=== PATIENT | male | born 1960 ===

== ENCOUNTER 2021-04-30 21:14 | Inpatient (IN) | payer MEDICAID ==
[~2021-04-30] VITALS: Ht 170.2 cm; Wt 62.9 kg
[2021-04-30 21:35] VITALS: BP 171/95
[2021-04-30] MEDS ORDERED: DOCUSATE 100 MG CAPSULE PO PRN (22:00)
[2021-04-30] MEDS ORDERED: POLYETHYLENE GLYCOL 17 GM PACKET PO PRN (22:00)
[2021-04-30] MEDS ORDERED: BISACODYL 10 MG SUPP PR PRN (22:00)
[2021-04-30] MEDS ORDERED: ACETAMINOPHEN 325 MG TABLET PO PRN (22:00)
[2021-04-30] MEDS ORDERED: PLEASE ENTER HEIGHT AND WEIGHT MC SCH (22:00)
[2021-05-01 07:18] LABS: CHOL/HDL RATIO 3.7; FREE T4 (FREE THYROXINE) 1.22 ng/dL (0.76-1.46); LDL/HDL RATIO 2.3 (0.5-3.0)
[2021-05-01 08:09] VITALS: BP 127/81
[2021-05-01 19:50] VITALS: BP 146/87
[2021-05-01] MEDS: OLANZAPINE 2.5 MG TABLET PO SCH (21:00)
[2021-05-02 07:24] VITALS: BP 131/78
[2021-05-02 19:27] VITALS: BP 137/79
[2021-05-02] MEDS: OLANZAPINE 2.5 MG TABLET PO SCH (20:48)
[2021-05-03 07:02] VITALS: BP 130/76
[2021-05-03 19:17] VITALS: BP 127/76
[2021-05-03] MEDS: OLANZAPINE 2.5 MG TABLET PO SCH (20:38)
[2021-05-04 07:20] VITALS: BP 126/77
[2021-05-04 20:04] VITALS: BP 125/70
[2021-05-04] MEDS: OLANZAPINE 2.5 MG TABLET PO SCH (20:45)
[2021-05-05 07:26] VITALS: BP 143/87
== END 2021-05-05 15:40 | disposition home or self-care (01) | DRG 885 ==
LOC: 3E 21:15
PROVIDERS: ADMIT Psychiatry & Neurology Psychosomatic Medicine; ATTEND Psychiatry & Neurology Psychosomatic Medicine
DX: F25.0 Schizoaffective disorder, bipolar type (principal); F41.9 Anxiety disorder, unspecified; K59.00 Constipation, unspecified; Z59.0 Homelessness; Z88.0 Allergy status to penicillin; Z87.891 Personal history of nicotine dependence; Z79.899 Other long term (current) drug therapy
CPT/HCPCS: 36415; 71045; 80061; 82607; 84439; 84443; 93005

== ENCOUNTER → 2021-04-30 | Emergency (ER) | payer MEDICAID ==
[~2021-04-30] VITALS: Ht 170.2 cm; Wt 65.4 kg
--- NOTE | 2021-04-30 14:38 | NUR ---
PT PRESENTS TO ED WITH MULTIPLE CC, PRESENTS TO BE IN STATE OF PSYCHOSIS. PT COOPERATIVE, A&O X 4, RESPS EVEN AND UNLABORED, VSS, NADN. ERPA AT BEDSIDE FOR INITIAL ASSESSMENT AND EVAL.
[2021-04-30 14:50] LABS: BASOPHILS % (AUTO) 1 % (0-1); EOSINOPHILS % (AUTO) 2 % (1-7); LYMPHOCYTES % (AUTO) 21 % (22-44); MEAN CORPUSCULAR HGB CONC 33.9 g/dL (33.2-36.2); MONOCYTES % (AUTO) 10 % (2-9); NEUTROPHILS % (AUTO) 66 % (42-75); PLATELET COUNT 175 x10^3/uL (130-400); RED BLOOD COUNT 4.75 x10^6/uL (4.38-5.82); RED CELL DISTRIBUTION WIDTH 13.9 % (9.4-14.8)
[2021-04-30 15:01] LABS: ALBUMIN 4.1 g/dL (3.4-5.0); ANION GAP 6 mmol/L (5-15); CALCIUM 9.6 mg/dL (8.5-10.1); CHLORIDE 107 mmol/L (98-107)
[2021-04-30 15:04] LABS: ALANINE AMINOTRANSFERASE 30 U/L (12-78); ALKALINE PHOSPHATASE 81 U/L (45-117); BILIRUBIN,TOTAL 0.7 mg/dL (0.2-1.0); CREATININE 1.13 mg/dL (0.7-1.3); TOTAL PROTEIN 7.7 g/dL (6.4-8.2)
--- NOTE | 2021-04-30 15:11 | NUR ---
preceptor RN note :pt resting on gurney, a&o, resps even and unlabored. bp and spo2 monitors in place. awaiting psych consult. pt denies SI/HI. pt is dozing on and off, calm and cooperative. call light in reach.
[2021-04-30 15:18] LABS: SALICYLATE LEVEL < 1.7 mg/dL (2.8-20.0)
[2021-04-30 15:29] LABS: AMPHETAMINE SCREEN, URINE Negative (Negative); BARBITURATE SCREEN, URINE Negative (Negative); BENZODIAZEPINE SCREEN, URINE Negative (Negative); CANNABINOID SCREEN, URINE Negative (Negative); COCAINE SCREEN, URINE Negative (Negative); METHADONE SCREEN, URINE Negative (Negative); OPIATE SCREEN, URINE Negative (Negative)
--- NOTE | 2021-04-30 15:53 | NUR ---
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
[2021-04-30 17:05] LABS: MICROSCOPIC NOT IND
--- NOTE | 2021-04-30 17:33 | NUR ---
PT PLACED ON LEGAL HOLD. PT TO MOVE TO ROOM 40 TO ACCOMODATE FOR SECURITY PRECAUTIONS
--- NOTE | 2021-04-30 17:59 | NUR ---
rapid covid swab collected and walked down to lab
--- NOTE | 2021-04-30 18:11 | NUR ---
pt in secure room, pt belongings bagged and locked away in ED belongings locker. garage doors down, sitter at bedside.
[2021-04-30 18:41] VITALS: BP 146/89
--- NOTE | 2021-04-30 18:46 | NUR ---
BEDSIDE REPORT GIVEN TO KAILYN PEREZ
--- NOTE | 2021-04-30 19:28 | NUR ---
TP RN: U AWARE OF PT AND REVIEWING CHART
--- NOTE | 2021-04-30 19:30 | NUR ---
PT RESTING ON COREY HODGE, SITTER IN SIGHT
--- NOTE | 2021-04-30 19:59 | NUR ---
HEIDE RN: PT ACCEPT BY [facility]
--- NOTE | 2021-04-30 20:33 | NUR ---
PT RESTING ON COREY AYESHA Addendum: 04/30/21 at 2036 by [email or web address] MARY VENTURA IN SIGHT
--- NOTE | 2021-04-30 20:55 | NUR ---
REPORT TO SLIM AT 3E, PT READY FOR TRANSFER TO FLOOR
== END ==
LOC: ED 14:50 → UNDOADMOB 16:27 → EDIP 16:27
DX: F23 Brief psychotic disorder (principal); F60.0 Paranoid personality disorder; Z20.822 Contact with and (suspected) exposure to COVID-19
CPT/HCPCS: 36415; 80053; 80299; 80307; 80320; 80329; 81003; 85025; 87635; 99285; G0480